=== PATIENT | male | born 1935 | race African-American/Black ===

== ENCOUNTER 2020-05-13 14:48 | Inpatient (IN) | payer OTHER ==
[~2020-05-13] VITALS: Ht 193 cm; Wt 84.5 kg
[~2020-05-13 14:48] MED LIST: DOCU-138 MT; FERR-71 MT; OMEP20CA14 MT; PRAV10TA35 MT; [UNRECOGNIZED DRUG - CODE] MT
[2020-05-13] MEDS ORDERED: DEXTROSE 50% WATER 50ML SYRINGE IV ONE (15:15)
[2020-05-13] MEDS ORDERED: SODIUM CHLORIDE 0.9% 1000ML BAG (SEPSIS BOLUS) IV ONE (15:30)
[2020-05-13 16:06] LABS: HEMATOCRIT. 33.7 % (42.0-52.0); HEMOGLOBIN. 10.7 g/dL (14.0-18.0); MEAN CORPUSCULAR HEMOGLOBIN 29.6 pg (28.0-32.0); MEAN CORPUSCULAR VOLUME 93.1 fL (80.0-94.0); MEAN PLATELET VOLUME 8.5 fl (7.4-10.4); PLATELET 340 x1000/uL (130-400); RED BLOOD CELL COUNT 3.62 mill/uL (4.7-6.1); RED CELL DISTRIBUTION WIDTH 20.4 % (11.6-14.6)
[2020-05-13 16:11] LABS: CHLORIDE 103 mEq/L (98-107)
[2020-05-13 16:13] LABS: PROTHROMBIN TIME 10.9 sec (9.6-11.0)
[2020-05-13 16:26] LABS: PLATELET ESTIMATE NORMAL
[2020-05-13] MEDS ORDERED: PIPERACILLIN/TAZ 3.375G PREMIX 50 ML IV NR (16:45)
[2020-05-13] MEDS ORDERED: VANCOMYCIN 1 G PREMIX 200 ML IV NR (16:45)
[2020-05-13 16:57] LABS: CLARITY URINE CLOUDY (CLEAR); COLOR URINE YELLOW (YELLOW); KETONES URINE NEGATIVE (NEGATIVE); LEUKOCYTE ESTERASE URINE 3+ (NEGATIVE); NITRITE URINE POSITIVE (NEGATIVE); OCCULT BLOOD URINE 2+ (NEGATIVE); PH URINE 8.5 (4.5-8.0); PROTEIN URINE 1+ (NEGATIVE); SPECIFIC GRAVITY URINE 1.014 (1.005-1.030)
[2020-05-13] MEDS ORDERED: ACETAMINOPHEN 650MG SUPP PR ONE (18:15)
[2020-05-13] MEDS ORDERED: ONDANSETRON HCL 4MG/2ML INJ IV PRN (18:45)
[2020-05-13] MEDS ORDERED: ACETAMINOPHEN 325MG TABLET PO PRN (18:45)
[2020-05-13] MEDS ORDERED: TRAZODONE HCL 50MG TABLET PO PRN (18:45)
[2020-05-13] MEDS: DEXT 5%/0.45% NACL 1000ML 1,000 ML IV SCH (20:03)
[2020-05-13] MEDS: HEPARIN 5000 UNITS/ML VIAL SUBCUT SCH (21:30)
[2020-05-13 22:03] VITALS: BP 107/51
[2020-05-14] VITALS (12 sets, daily range): BP systolic 94–132; BP diastolic 42–63
[2020-05-14] MEDS: PIPERACILLIN/TAZOBACTAM 3.375 G in DEXTROSE 5% WATER 50 ML IV SCH ×2 (01:30→05:24)
[2020-05-14] MEDS ORDERED: VANCOMYCIN 750 MG PREMIX 150 ML IV SCH (06:00)
[2020-05-14] MEDS: HEPARIN 5000 UNITS/ML VIAL SUBCUT SCH ×2 (08:06→20:12)
[2020-05-14] MEDS ORDERED: VITAMIN D3 PO (08:41)
[2020-05-14 10:55] LABS: CHLORIDE 106 mEq/L (98-107)
[2020-05-14 11:24] LABS: BASOPHILS % 0.2 % (0.0-2.0); EOSINOPHILS % 0.3 % (0.0-5.0); HEMATOCRIT. 25.1 % (42.0-52.0); HEMOGLOBIN. 8.1 g/dL (14.0-18.0); LYMPHOCYTES % 10.6 % (20.0-50.0); MEAN CORPUSCULAR HEMOGLOBIN 29.6 pg (28.0-32.0); MEAN CORPUSCULAR VOLUME 92.1 fL (80.0-94.0); MEAN PLATELET VOLUME 7.8 fl (7.4-10.4); MONOCYTES % 6.8 % (2.0-8.0); NEUTROPHILS % 82.1 % (40.0-76.0); PLATELET 252 x1000/uL (130-400); RED BLOOD CELL COUNT 2.73 mill/uL (4.7-6.1); RED CELL DISTRIBUTION WIDTH 20.4 % (11.6-14.6)
[2020-05-14] MEDS: PIPERACILLIN/TAZOBACTAM 3.375 G in DEXT 5% WATER 100 ML IV SCH ×3 (11:25→23:11)
[2020-05-14] MEDS: DEXT 5%/0.45% NACL 1000ML 1,000 ML IV SCH (13:10)
[2020-05-15] VITALS (16 sets, daily range): BP systolic 97–132; BP diastolic 35–73
[2020-05-15 05:48] LABS: CHLORIDE 107 mEq/L (98-107)
[2020-05-15 06:03] LABS: LDL CHOLESTEROL 62 mg/dL (5-100)
[2020-05-15 06:04] LABS: HDL CHOLESTEROL 37 mg/dL (40-59); TOTAL IRON BINDING CAPACITY 168 ug/dL (250-450)
[2020-05-15 06:05] LABS: VANCOMYCIN TROUGH 6.2 ug/mL (5.0-10.0)
[2020-05-15 06:07] LABS: T4 FREE 1.22 ng/dL (0.76-1.46)
[2020-05-15 06:10] LABS: BASOPHILS % 0.1 % (0.0-2.0); EOSINOPHILS % 1.2 % (0.0-5.0); HEMATOCRIT. 29.2 % (42.0-52.0); HEMOGLOBIN. 9.3 g/dL (14.0-18.0); LYMPHOCYTES % 14.2 % (20.0-50.0); MEAN CORPUSCULAR HEMOGLOBIN 30.1 pg (28.0-32.0); MEAN CORPUSCULAR VOLUME 94.5 fL (80.0-94.0); MEAN PLATELET VOLUME 8.7 fl (7.4-10.4); MONOCYTES % 5.3 % (2.0-8.0); NEUTROPHILS % 79.2 % (40.0-76.0); PLATELET 232 x1000/uL (130-400); RED BLOOD CELL COUNT 3.09 mill/uL (4.7-6.1); RED CELL DISTRIBUTION WIDTH 20.3 % (11.6-14.6)
[2020-05-15 06:16] LABS: VITAMIN B12 SERUM 384 pg/mL (211-911)
[2020-05-15] MEDS: PIPERACILLIN/TAZOBACTAM 3.375 G in DEXT 5% WATER 100 ML IV SCH ×2 (06:28→12:24)
[2020-05-15] MEDS: HEPARIN 5000 UNITS/ML VIAL SUBCUT SCH (09:15)
[2020-05-15] MEDS ORDERED: POTASSIUM CHLORIDE 20MEQ/PACKET PO NR (09:30)
[2020-05-15] MEDS ORDERED: SULF1TAB48 MT (14:41)
[2020-05-15] MEDS ORDERED: FERROUS SULFATE 300MG/5ML UDC PO SCH (17:20)
[2020-05-15] MEDS ORDERED: FERROUS SULFATE 325MG TABLET PO SCH (17:20)
== END 2020-05-15 18:45 | disposition home or self-care (01) | DRG 871 ==
LOC: ER 14:48 → EDBEDREQTM 16:59 → EDBEDREQSVC 16:59 → 3WST 18:17 → EDBEDREQTM 18:24 → EDBEDREQ 18:24 → EDBEDREQSVC 18:24 → ENRESERV 21:09
PROVIDERS: ADMIT Family Medicine Adult Medicine; ATTEND Family Medicine Adult Medicine
DX: A41.50 Gram-negative sepsis, unspecified (principal); G93.41 Metabolic encephalopathy; E43 Unspecified severe protein-calorie malnutrition; E87.1 Hypo-osmolality and hyponatremia; E87.2 Acidosis; K94.23 Gastrostomy malfunction; N39.0 Urinary tract infection, site not specified; R65.20 Severe sepsis without septic shock; D64.9 Anemia, unspecified; E16.2 Hypoglycemia, unspecified; I95.9 Hypotension, unspecified; F17.200 Nicotine dependence, unspecified, uncomplicated; I10 Essential (primary) hypertension; E87.6 Hypokalemia; R13.10 Dysphagia, unspecified; Z99.2 Dependence on renal dialysis; Z68.22 Body mass index [BMI] 22.0-22.9, adult; Z79.899 Other long term (current) drug therapy
CPT/HCPCS: 36415; 71045; 80053; 80061; 80202; 81003; 82607; 82962; 83540; 83550; 83605; 83735; 83880; 84145; 84439; 84443; 84481; 84484; 85025; 87077; 87186; 93005; 93306; 96365; 99285; J1644; J2543; J3370; J7030; J7060; A4315